=== PATIENT | male | born 1945 | race Caucasian/White ===

== ENCOUNTER 2020-04-27 22:37 | Observation (INO) | payer OTHER ==
[~2020-04-27] VITALS: Ht 167.6 cm; Wt 83.9 kg
[2020-04-27 22:55] LABS: APPEARANCE,URINE Clear (CLEAR); BILIRUBIN,URINE Negative (NEGATIVE); COLOR,URINE Yellow (YELLOW); GLUCOSE, URINE (UA) TRACE mg/dL (NEGATIVE); KETONES,URINE Negative (NEGATIVE); LEUKOCYTE ESTERASE ,URINE Trace (NEGATIVE); NITRATE,URINE Negative (NEGATIVE); OCCULT BLOOD,URINE Negative (NEGATIVE); PH,URINE 6.5 (5.0-8.0); PROTEIN,URINE Trace mg/dL (NEGATIVE); UROBILINOGEN,URINE 0.2 mg/dL (0.2-1.0)
[2020-04-27 23:05] LABS: BASOPHILS % (AUTO) 0.4 % (0.0-5.0); HEMATOCRIT 39.4 % (42-54); LYMPHOCYTES % (AUTO) 25.5 % (21.0-51.0); MEAN CORPUSCULAR HEMOGLOBIN 30.2 pg (27.0-33.0); MEAN CORPUSCULAR VOLUME 88.7 fL (79-99); MONOCYTES % (AUTO) 10.5 % (3.0-13.0); NEUTROPHILS % (AUTO) 61.3 % (40.0-77.0); PLATELET COUNT (AUTO) 258 K/uL (130-400); RED BLOOD CELL COUNT(AUTO) 4.44 MIL/uL (4.50-6.20); RED CELL DISTRIBUTION WIDTH 12.9 % (11.0-15.5); WHITE BLOOD COUNT (AUTO) 6.9 K/uL (4.8-10.8)
[2020-04-27 23:17] LABS: CREATININE 1.5 mg/dL (0.5-1.5); POTASSIUM 3.8 mmol/L (3.5-5.1)
[2020-04-27 23:22] LABS: ALBUMIN 3.9 g/dL (3.5-5.0); BILIRUBIN,TOTAL 0.1 mg/dL (0.2-1.0); TOTAL PROTEIN, SERUM 7.7 g/dL (6.0-8.3)
[2020-04-27 23:27] LABS: INR 0.97 (0.85-1.15); PROTHROMBIN TIME 10.4 SEC (9.6-11.6)
[2020-04-27 23:29] LABS: PARTIAL THROMBOPLASTIN TIME 28.9 SEC (26.3-35.5)
[2020-04-27 23:31] LABS: BACTERIA,URINE None Seen /HPF (None Seen); RBC,URINE None Seen /HPF (0-1); WBC,URINE 0-1 /HPF (0-1)
[2020-04-28] MEDS ORDERED: ACETAMINOPHEN EXTRA STRENGTH 500 MG TABLET ONE (01:09)
[2020-04-28] MEDS ORDERED: ONDANSETRON HCL 4 MG/2 ML VIAL IV PRN (04:45)
[2020-04-28] MEDS ORDERED: MORPHINE SULFATE 2 MG/ML 1ML SYG IV PRN (04:45)
[2020-04-28] MEDS ORDERED: LACTULOSE 20 GM/30 ML UDCUP PO PRN (04:45)
[2020-04-28] MEDS ORDERED: METOPROLOL TARTRATE 25 MG TAB ONE (04:52)
[2020-04-28] MEDS ORDERED: ASPIRIN 325 MG TABLET ONE (04:52)
[2020-04-28 05:40] LABS: CHOLESTEROL 203 mg/dL (<200); CREATINE KINASE, TOTAL 81 U/L (21-232); HDL CHOLESTEROL 38 mg/dL (29-71); LDL DIRECT 133 mg/dL (0-99); MYOGLOBIN 84 ng/mL (10-92); TRIGLYCERIDES 239 mg/dL (30-200); TROPONIN I < 0.04 ng/mL (0.00-0.06)
[2020-04-28 05:55] LABS: HEMOGLOBIN A1C 7.3 % (4.0-6.0)
[2020-04-28] MEDS ORDERED: NITROGLYCERIN 1GM/1 INCH PACKET TD SCH (06:00)
[2020-04-28] MEDS ORDERED: METOPROLOL TARTRATE 25 MG TAB PO SCH (09:00)
[2020-04-28] MEDS ORDERED: LOSARTAN 50 MG TABLET PO SCH (09:00)
[2020-04-28] MEDS ORDERED: ASPIRIN 325 MG TABLET PO SCH (09:00)
[2020-04-28] MEDS ORDERED: ENOXAPARIN SODIUM 40 MG/0.4 ML SYRINGE SQ SCH (09:00)
[2020-04-28] MEDS ORDERED: FAMOTIDINE 20MG TAB 20 MG TAB PO SCH (09:00)
[2020-04-28] MEDS ORDERED: ENOXAPARIN SODIUM 40 MG/0.4 ML SYRINGE SQ ONE (10:07)
[2020-04-28] MEDS ORDERED: FAMOTIDINE 20MG TAB 20 MG TAB ONE (10:07)
[2020-04-28] MEDS ORDERED: NITROGLYCERIN 1GM/1 INCH PACKET TD ONE (10:07)
[2020-04-28] MEDS ORDERED: LOSARTAN 50 MG TABLET ONE (10:08)
[2020-04-28 11:38] LABS: CREATINE KINASE, TOTAL 79 U/L (21-232); MYOGLOBIN 92 ng/mL (10-92); TROPONIN I < 0.04 ng/mL (0.00-0.06)
[2020-04-28] MEDS ORDERED: METO-408 PO (13:35)
[2020-04-28] MEDS ORDERED: LISI1TAB32 PO (13:36)
[2020-04-28] MEDS ORDERED: METF-444 PO (13:36)
[2020-04-28] MEDS ORDERED: GLIM2TAB30 PO (13:37)
[2020-04-28] MEDS ORDERED: SIMV40TA59 PO (13:37)
[2020-04-28] MEDS ORDERED: CLON0.5T23 PO (13:38)
[2020-04-28] MEDS ORDERED: ARMO50TA4 PO (13:38)
[2020-04-28] MEDS ORDERED: DULO60CA64 PO (13:38)
[2020-04-28] MEDS ORDERED: AEC81 PO (13:39)
[2020-04-28] MEDS ORDERED: NITR0.4T50 SL (13:41)
== END 2020-04-28 14:31 | disposition home or self-care (01) ==
LOC: EDH 22:37 → EDHIP 04-28 04:33
PROVIDERS: ADMIT Internal Medicine; ATTEND Internal Medicine
DX: R07.89 Other chest pain (principal); Z20.828 Contact with and (suspected) exposure to other viral communicable diseases; E11.649 Type 2 diabetes mellitus with hypoglycemia without coma; I10 Essential (primary) hypertension; E78.5 Hyperlipidemia, unspecified; G47.33 Obstructive sleep apnea (adult) (pediatric); Z87.442 Personal history of urinary calculi; Z79.82 Long term (current) use of aspirin; Z79.84 Long term (current) use of oral hypoglycemic drugs; Z79.899 Other long term (current) drug therapy; Z88.0 Allergy status to penicillin; Z88.2 Allergy status to sulfonamides
CPT/HCPCS: 36415 ×2; 71045; 80053; 80061; 81001; 82550 ×3; 83036; 83735; 83874 ×2; 84484 ×3; 85025; 85610; 85730; 87426; 93005 ×4; 99285; G0378 ×10; J1650; U0003

== ENCOUNTER → 2020-05-06 | Outpatient (CLI) | payer OTHER ==
[~2020-05-06] MED LIST: AEC81 PO; ARMO50TA4 PO; CLON0.5T23 PO; DULO60CA64 PO; LISI1TAB32 PO; METF-444 PO; METO-408 PO; NITR0.4T50 SL; REGADENOSON 0.4 MG/5 ML PF SYG IVP SCH; SIMV40TA59 PO
== END | disposition home or self-care (01) ==
LOC: SHCH 08:08
PROVIDERS: ATTEND Internal Medicine Cardiovascular Disease
DX: R07.9 Chest pain, unspecified (principal)
CPT/HCPCS: 78452; 93017; 96374; A9500 ×2; J2785

== ENCOUNTER 2020-06-02 06:37 | Day surgery (SDC) | payer OTHER ==
[2020-05-31 11:56] LABS: BASOPHILS % (AUTO) 0.5 % (0.0-5.0); EOSINOPHILS % (AUTO) 0.6 % (0.0-8.0); LYMPHOCYTES % (AUTO) 20.2 % (21.0-51.0); MEAN CORPUSCULAR HEMOGLOBIN 29.4 pg (27.0-33.0); MEAN CORPUSCULAR VOLUME 86.6 fL (79-99); MONOCYTES % (AUTO) 7.1 % (3.0-13.0); NEUTROPHILS % (AUTO) 71.3 % (40.0-77.0); PLATELET COUNT (AUTO) 304 K/uL (130-400); RED BLOOD CELL COUNT(AUTO) 4.62 MIL/uL (4.50-6.20); RED CELL DISTRIBUTION WIDTH 12.3 % (11.0-15.5); WHITE BLOOD COUNT (AUTO) 6.6 K/uL (4.8-10.8)
[2020-05-31 12:01] LABS: APPEARANCE,URINE Clear (CLEAR); BILIRUBIN,URINE Negative (NEGATIVE); COLOR,URINE Yellow (YELLOW); GLUCOSE, URINE (UA) Negative (NEGATIVE); KETONES,URINE Trace mg/dL (NEGATIVE); LEUKOCYTE ESTERASE ,URINE Trace (NEGATIVE); NITRATE,URINE Negative (NEGATIVE); OCCULT BLOOD,URINE Negative (NEGATIVE); PROTEIN,URINE Negative (NEGATIVE)
[2020-05-31 12:10] LABS: CREATININE 1.5 mg/dL (0.5-1.5); POTASSIUM 4.3 mmol/L (3.5-5.1)
[2020-05-31 12:12] LABS: INR 1.02 (0.85-1.15); PROTHROMBIN TIME 11.1 SEC (9.6-11.6)
[2020-05-31 12:13] LABS: BACTERIA,URINE None Seen /HPF (None Seen); RBC,URINE 0-1 /HPF (0-1); SQUAMOUS EPITHELIAL CELL,UR 0-2 /HPF (0-2); WBC,URINE 0-1 /HPF (0-1)
[2020-05-31 12:14] LABS: PARTIAL THROMBOPLASTIN TIME 29.5 SEC (26.3-35.5)
[2020-06-01] MEDS: SODIUM CHLORIDE 0.9% 1000ML 1,000 ML IV SCH (07:23)
[2020-06-01 14:05] VITALS: BP 149/85
[~2020-06-02] VITALS: Ht 167.6 cm; Wt 80.7 kg
[2020-06-02] VITALS (10 sets, daily range): BP systolic 95–120; BP diastolic 50–71
[~2020-06-02 06:37] MED LIST changes: +COCO1000 PO; +CYAN250014 PO; +GARL1TAB2 PO; +LISI1TAB29 PO; -LISI1TAB32 PO; +LORA10TA7 PO; +MULT-1203 PO; -NITR0.4T50 SL; -REGADENOSON 0.4 MG/5 ML PF SYG IVP SCH; +SODIUM CHLORIDE 0.9% 500ML 500 ML IV SCH
[2020-06-02] MEDS ORDERED: NICARDIPINE HCL 25 MG/10 ML ML IV ONE ×2 (08:27→11:05)
[2020-06-02] MEDS ORDERED: NITROGLYCERIN 2 MG/VIAL VIAL IV ONE ×2 (08:27→11:06)
[2020-06-02] MEDS ORDERED: HEPARIN SODIUM 1000UNIT/ML 10ML VIAL ONE ×2 (08:27→11:06)
[2020-06-02] MEDS ORDERED: IOHEXOL 350 MG/ML 100ML INFUS..BTL IV ONE ×2 (08:28→11:06)
[2020-06-02] MEDS ORDERED: LIDOCAINE HCL 2% 20ML ONE ×2 (08:28→11:06)
[2020-06-02] MEDS ORDERED: IOHEXOL-350 50ML VIAL IV ONE (08:28)
[2020-06-02] MEDS ORDERED: FENTANYL CITRATE PF 50 MCG/1 ML 2ML VIAL ONE ×2 (08:50→11:06)
[2020-06-02] MEDS ORDERED: MIDAZOLAM HCL 1 MG/ML 2ML VIAL ONE ×2 (08:50→11:06)
[2020-06-02] MEDS ORDERED: IOHEXOL-350 75 ML VIAL IV ONE (11:06)
[2020-06-02] MEDS ORDERED: CLOPIDOGREL BISULFATE 300 MG TAB ONE (11:55)
[2020-06-02] MEDS ORDERED: ASPIRIN 325MG EC TAB 325 MG TABLET.DR PO ONE (11:55)
[2020-06-02] MEDS ORDERED: MORPHINE SULFATE 4 MG/1ML SYG ONE (12:15)
== END 2020-06-02 16:30 | disposition home or self-care (01) ==
LOC: DAH 06:37
PROVIDERS: ATTEND Internal Medicine Cardiovascular Disease
DX: R07.9 Chest pain, unspecified (principal); I10 Essential (primary) hypertension; E11.9 Type 2 diabetes mellitus without complications; G47.33 Obstructive sleep apnea (adult) (pediatric); E78.5 Hyperlipidemia, unspecified; E86.0 Dehydration; Z88.0 Allergy status to penicillin; Z88.1 Allergy status to other antibiotic agents; Z79.899 Other long term (current) drug therapy; Z99.89 Dependence on other enabling machines and devices; Z79.01 Long term (current) use of anticoagulants
CPT/HCPCS: 36415; 71045; 80048; 81001; 82948 ×2; 85025; 85610; 85730; 93005; 93458; 96360; 96361; A4215; A4216; A4221; A4222; A4223 ×3; A4606; A4663; C1725 ×2; C1760; C1769; C1874; C1887; C1894 ×2; C9600; J1644 ×3; J2250; J2270; J3010; J3490 ×4; J7030; Q9965 ×2; Q9967 ×3; 99156; 99157